=== PATIENT | female | born 1955 | race American Indian/Alaskan Native ===

== ENCOUNTER 2017-06-20 19:11 | Emergency (ER) | payer MEDICAID ==
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
[2017-06-20] MEDS ORDERED: HYDROmorphone 1 mg/ml ISec IVP STA (21:13)
[2017-06-20] MEDS ORDERED: DiphenhydrAMINE 50 mg/ml Inj IVP STA (21:13)
[2017-06-20] MEDS ORDERED: DiphenhydrAMINE 50 mg/ml Inj ONE (21:54)
--- NOTE | 2017-06-20 22:26 | CT ---
EXAM: CT Lumbar Spine Without Intravenous Contrast CLINICAL HISTORY: 61 years old, female; Pain; Low back pain; Additional info: Back pain, radiating to left leg TECHNIQUE: Axial computed tomography images of the lumbar spine without intravenous contrast. All CT scans at this facility use one or more dose reduction techniques, viz.: automated exposure control; ma/kV adjustment per patient size (including targeted exams where dose is matched to indication; i.e. head); or iterative reconstruction technique. Coronal and sagittal reformatted images were created and reviewed. COMPARISON: No relevant prior studies available. FINDINGS: Vertebrae: No acute fracture. Mild curvature of spine. Facet osteoarthrosis within lower lumbar spine. Discs/spinal canal/neural foramina: Severe degenerative disc disease at L5-S1 level. Mild diffuse disc bulges at L3-L4, L4-L5, L5-S1 levels. Mild central canal stenosis at L3-L4, L4-L5 levels. Soft tissues: Unremarkable. Vasculature: [id number] atherosclerotic disease. IMPRESSION: 1. No fracture. 2. If symptoms pain persists, consider MRI for further evaluation. 3. Incidental/non-acute findings are described above.
[2017-06-20 23:26] LABS: BASO % 0.5 % (0.0-2.0); EOS # 0.3 K/uL (0.0-0.7); EOS % 2.9 % (0.0-4.0); HEMATOCRIT 40.2 % (34.0-47.0); LYMPH # 3.8 K/uL (1.0-4.3); LYMPH % 41.9 % (20.0-40.0); MEAN CELL VOLUME 97.2 fL (81.0-99.0); MEAN CORPUSCULAR HEMOGLOBIN 31.4 pg (27.0-31.0); MEAN CORPUSCULAR HGB CONC 32.3 g/dL (33.0-37.0); MEAN PLATELET VOLUME 8.5 fL (7.2-11.7); MONO # 0.9 K/uL (0.0-0.8); MONO % 9.9 % (0.0-10.0); NRBC % 0.1 % (0.0-2.0); RED CELL DISTRIBUTION WIDTH 16.1 % (11.5-14.5)
[2017-06-20 23:36] LABS: VENOUS BLOOD GAS BASE EXCESS 4.5 mmol/L (0.0-2.0); VENOUS BLOOD GAS PCO2 29 mmHg (40-60); VENOUS BLOOD PH 7.56 (7.32-7.43)
[2017-06-20 23:46] LABS: ALB/GLOB RATIO 1.1 (1.0-2.1); BILIRUBIN,TOTAL 1.3 mg/dL (0.2-1.3); POTASSIUM 5.3 mmol/L (3.6-5.2)
[2017-06-21 01:06] LABS: RBC URINE < 1 /hpf (0-3); URINE BILIRUBIN NEGATIVE (NEGATIVE); URINE BLOOD NEGATIVE (NEGATIVE); URINE COLOR Amber (YELLOW); URINE GLUCOSE (UA) NORMAL (Normal); URINE HYALINE CAST >20 /lpf (0-2); URINE KETONE NEGATIVE (NEGATIVE); URINE LEUKOCYTE ESTERASE NEG Leu/uL (Negative); URINE PROTEIN 1+ mg/dL (NEGATIVE); WBC URINE 2 /hpf (0-5)
[2017-06-21] MEDS ORDERED: HYDROmorphone 1 mg/ml ISec IVP STA (01:15)
[2017-06-21] MEDS ORDERED: HYDROmorphone 1 mg/ml ISec ONE (01:23)
[2017-06-21 01:36] VITALS: RESP 20
[2017-06-21 06:24] VITALS: BP 123/73; PULSE 100; TEMP 98.2; O2SAT 97
--- NOTE | 2017-06-21 09:28 | RAD ---
HISTORY: cough COMPARISON: No prior. TECHNIQUE: Chest PA and lateral FINDINGS: LUNGS: Mild venous congestion. Elevated right hemidiaphragm. Minimal bibasilar atelectasis. Bibasilar breast and nipple shadows. PLEURA: No significant pleural effusion identified. No pneumothorax apparent. CARDIOVASCULAR: Prominent tortuous and ectatic aorta. Right paratracheal prominence may represent prominent vasculature. OSSEOUS STRUCTURES: Degenerative changes in the spine and shoulders. VISUALIZED UPPER ABDOMEN: Normal. OTHER FINDINGS: None. IMPRESSION: Mild venous congestion. Elevated right hemidiaphragm. Minimal bibasilar atelectasis. Bibasilar breast and nipple shadows. Prominent tortuous and ectatic aorta. Right paratracheal prominence may represent prominent vasculature.
== END 2017-06-21 06:40 | disposition home or self-care (01) ==
LOC: C.ER 19:11
DX: M54.32 Sciatica, left side (principal)
CPT/HCPCS: 71020; 72131; 80053; 81001; 82803; 85025; 87040; 96374; 96375; 96376; 99285; J1170; J1200; J1885; J2060